=== PATIENT | female | born 1965 | race Caucasian/White ===

== ENCOUNTER 2022-08-14 06:37 | Day surgery (SDC) | payer OTHER ==
[~2022-08-14] VITALS: Ht 165.1 cm; Wt 93.0 kg
[2022-08-14] MEDS ORDERED: CLINDAMYCIN PHOS IV ONE ×2 (08:00)
[2022-08-14] MEDS ORDERED: D5W IV ONE ×2 (08:00)
[2022-08-14] MEDS ORDERED: HYDROmorphone 1 MG/ML INJ. CARTRIDGE IVP PRN (15:15)
[2022-08-14] MEDS ORDERED: hydrALAZINE HCL 20 MG/ML VIAL IVP PRN (15:15)
[2022-08-14] MEDS ORDERED: LR 1,000 ML IV SCH (15:15)
[2022-08-14] MEDS ORDERED: LABETALOL 100 MG/ 20ML VIAL IVP PRN (15:15)
[2022-08-14] MEDS ORDERED: HYDROmorphone 1 MG/ML INJ. CARTRIDGE ONE (15:42)
[2022-08-14 17:41] VITALS: BP_SYST 134
== END 2022-08-14 17:25 | disposition home or self-care (01) ==
LOC: SDS 06:37 → SMU 06:38 → SDS 17:25
PROVIDERS: ATTEND Otolaryngology
DX: J32.4 Chronic pansinusitis (principal); J33.0 Polyp of nasal cavity; I10 Essential (primary) hypertension; E66.01 Morbid (severe) obesity due to excess calories; J45.909 Unspecified asthma, uncomplicated; Z68.41 Body mass index [BMI] 40.0-44.9, adult; Z79.899 Other long term (current) drug therapy; Z20.822 Contact with and (suspected) exposure to COVID-19
CPT/HCPCS: 36415; 31296; 31256; 31259; 88304; U0003; J3490; J1170; J7060; C1726

== ENCOUNTER 2023-06-20 09:46 | Day surgery (SDC) | payer OTHER ==
[~2023-06-20] VITALS: Ht 165.1 cm; Wt 127.0 kg
[~2023-06-20 09:46] MED LIST: BUPIVACAINE /PF 0.25% 30 ML VIAL INJ ONE; KETOROLAC TROMETHAMINE 30 MG VIAL ONE; LIDOCAINE/EPI 1% 1:100000 20 ML VIAL ONE; LR 1,000 ML IV.SOLN IV ONE; MIDAZOLAM HCL 5 MG/5 ML VIAL ONE; NS IRRIG SOLN 1000 ML IR ONE; ONDANSETRON HCL 4 MG/2 ML VIAL ONE; PROPOFOL 200MG/ 20ML VIAL (DIPRIVAN) IV ONE; WATER FOR IRRIGATION,STERILE 1,000 ML IRRIG.SOLN IR ONE; ceFAZolin SODIUM 2 GM in D5W 50 ML IV ONE; fentaNYL CITRATE 250 MCG/5 ML AMP ONE
[2023-06-20] MEDS ORDERED: CEFAZOLIN 2 GM IVPB PREMIX 50 ML IV ONE (10:04)
[2023-06-20 10:26] VITALS: O2SAT 97
[2023-06-20] MEDS ORDERED: HYDROmorphone 1 MG/ML INJ. CARTRIDGE IVP PRN ×2 (17:00)
[2023-06-20] MEDS ORDERED: METOCLOPRAMIDE HCL 10 MG/2 ML VIAL IVP PRN (17:00)
[2023-06-20] MEDS ORDERED: ONDANSETRON HCL 4 MG/2 ML VIAL IVP PRN (17:00)
[2023-06-20] MEDS ORDERED: HYDROmorphone 1 MG/ML INJ. CARTRIDGE ONE (17:22)
[2023-06-20 18:14] VITALS: BP_SYST 120; PULSE 72; RESP 16; TEMP 97.4
== END 2023-06-20 18:45 | disposition home or self-care (01) ==
LOC: SDS 09:46 → SMU 09:48 → SDS 18:45
PROVIDERS: ATTEND Surgery
DX: R22.2 Localized swelling, mass and lump, trunk (principal); D17.1 Benign lipomatous neoplasm of skin and subcutaneous tissue of trunk; J45.909 Unspecified asthma, uncomplicated; I10 Essential (primary) hypertension; E66.9 Obesity, unspecified; Z68.42 Body mass index [BMI] 45.0-49.9, adult; E78.5 Hyperlipidemia, unspecified; G47.33 Obstructive sleep apnea (adult) (pediatric); Z79.899 Other long term (current) drug therapy
CPT/HCPCS: 87081; 21933; 13101; 13102; 88304; J3490; J0690; J1885; J2250; J2405; J2704; J3010; J1170; J7120; J7060